=== PATIENT | male | born 1940 | race Caucasian/White ===

== ENCOUNTER 2017-10-24 12:01 | Emergency (ER) | payer OTHER, MEDICARE ==
[~2017-10-24] VITALS: Ht 182.9 cm; Wt 84.8 kg
[~2017-10-24 12:01] MED LIST: AMITIZA24 MICROGR PO; AMLODIPINE BES2.5 MG PO; ASPIR-LOW81 MG PO; ATIVAN0.5 MG PO; CARBIDOPA-LEVO1 EAC8 PO; CARBIDOPA/LEVO1 EACH PO; COMBIVENT RESPIM4 GM IH; CONSTULOSE10 GM/15 M PO; COQ-10100 MG PO; ENULOSE10 GM/15 M PO; FINASTERIDE5 MG PO; FUROSEMIDE20 MG PO; KEFLEX500 MG PO; LISINOPRIL-HCT1 EAC3 PO; LO-DOSE ASPIRIN81 M2 PO; MESTINON60 MG PO; METOPROLOL SUCC25 MG PO; NEO-SYNEPHRINE-15 ML BOTH NARES; OMEPRAZOLE40 M1 PO; POTASSIUM CHLO10 ME3 PO; PRAVASTATIN SOD40 MG PO; PYRIDOSTIGMINE60 MG PO; ROPINIROLE HCL3 MG PO; ROPINIROLE HCL4 MG PO; SERTRALINE HCL100 MG PO; SERTRALINE HCL50 MG PO; SINEMET 25-1001 EACH PO; SINEMET CR 50-1 EACH PO; SYMBICORT60 INHALAT IH; TAMSULOSIN HCL0.4 MG PO; TERAZOSIN HCL5 MG PO; VITAMIN D-32000 UNI2 PO; VITAMIN D31000 UNI2 PO; ZETIA10 MG PO
[2017-10-24 13:04] LABS: HEMATOCRIT 34.6 % (38.0-50.0); HEMOGLOBIN 11.4 G/DL (12.5-16.6); MCH 30.8 PG (29.0-34.0); MCHC 32.9 G/DL (30.0-36.0); MCV 93.5 FL (86-99); PLATELET COUNT 187 K/uL (156-360); RBC DIS.WIDTH-SD 44.8 % (39-53); WHITE BLOOD COUNT 4.1 K/uL (4.1-10.2)
[2017-10-24 13:12] LABS: CHLORIDE 103 mEq/L (99-109); POTASSIUM 4.1 mEq/L (3.7-5.4); SODIUM 140 mEq/L (136-147)
[2017-10-24 13:13] LABS: GLUCOSE 103 mg/dL (70-99)
[2017-10-24 13:17] LABS: CREATININE 0.9 mg/dL (0.6-1.3); GFR ESTIMATE (CALCULATED) > 59 mL/min/ (58.99-99999)
[2017-10-24 13:18] LABS: UREA NITROGEN (BUN) 11 mg/dL (9-23)
[2017-10-24 13:25] LABS: TROP-I INTERPRETATION NEGATIVE; TROPONIN-I < 0.01 ng/mL (0.0-0.30)
[2017-10-24 13:34] LABS: APPEARANCE CLEAR ((CLEAR)); BILIRUBIN NEGATIVE; BLOOD NEGATIVE; COLOR YELLOW ((YELLOW)); GLUCOSE (STRIP) NEGATIVE; KETONES NEGATIVE; LEUKOCYTES NEGATIVE; NITRITE NEGATIVE; PROTEIN (STRIP) NEGATIVE; SPECIFIC GRAVITY 1.011 (1.000-1.030); UCUL ADDED? NO; UROBILINOGEN 0.2 MG/DL (0.2-1.0)
[2017-10-24] MEDS ORDERED: AMLODIPINE BES2.5 MG PO (14:40)
[2017-10-24] MEDS ORDERED: LISINOPRIL-HCT1 EAC3 PO (14:40)
[2017-10-24] MEDS ORDERED: REQUIP3 MG PO (14:48)
[2017-10-24 15:52] VITALS: BP 188/88
== END 2017-10-24 15:52 | disposition home or self-care (01) ==
LOC: EME 12:01
PROVIDERS: Emergency Medicine
DX: R06.00 Dyspnea, unspecified (principal); F22 Delusional disorders; F03.90 Unspecified dementia, unspecified severity, without behavioral disturbance, psychotic disturbance, mood disturbance, and anxiety; G20 Parkinson's disease; N40.0 Benign prostatic hyperplasia without lower urinary tract symptoms; F32.9 Major depressive disorder, single episode, unspecified; F41.9 Anxiety disorder, unspecified; Z79.82 Long term (current) use of aspirin; Z87.891 Personal history of nicotine dependence; Z90.49 Acquired absence of other specified parts of digestive tract
CPT/HCPCS: 71045; 80048; 81003; 84484; 85027; 93005; 99281; 99285

== ENCOUNTER 2018-05-07 12:45 | Inpatient (IN) | payer OTHER, MEDICARE ==
[~2018-05-07] VITALS: Ht 185.4 cm; Wt 81.1 kg
[~2018-05-07 12:45] MED LIST changes: +REQUIP3 MG PO
[2018-05-07 13:08] LABS: BASOPHIL (%) 0.3 % (0-1); EOSINOPHIL (%) 1.4 % (0-5); EOSINOPHIL COUNT 0.1 K/uL (0-0.3); HEMATOCRIT 33.9 % (38.0-50.0); HEMOGLOBIN 11.3 G/DL (12.5-16.6); IMMATURE GRANULOCYTE (%) 0.3 % (0.0-0.7); LYMPHOCYTE (%) 20.3 % (15-42); LYMPHOCYTE COUNT 1.4 K/uL (1.0-2.8); MCH 30.3 PG (29.0-34.0); MCHC 33.3 G/DL (30.0-36.0); MCV 90.9 FL (86-99); MONOCYTE (%) 6.5 % (3-12); MONOCYTE COUNT 0.5 K/uL (0-0.8); NEUTROPHIL (%) 71.2 % (45-76); NEUTROPHIL COUNT 4.9 K/uL (1.8-6.4); PLATELET COUNT 169 K/uL (156-360); RBC DIS.WIDTH-CV 12.9 % (11.8-14.6); RBC DIS.WIDTH-SD 42.7 % (39-53); RED BLOOD COUNT 3.73 M/uL (4.00-5.50); WHITE BLOOD COUNT 6.9 K/uL (4.1-10.2)
[2018-05-07 13:22] LABS: CHLORIDE 101 mEq/L (99-109); PTT 30.7 SEC (25-37); SODIUM 136 mEq/L (136-147)
[2018-05-07 13:23] LABS: GLUCOSE 100 mg/dL (70-99)
[2018-05-07 13:27] LABS: CREATININE 1.4 mg/dL (0.6-1.3); GFR ESTIMATE (CALCULATED) 52 mL/min/ (58.99-99999); SERUM ETHYL ALCOHOL < 10 mg/dL
[2018-05-07 13:28] LABS: UREA NITROGEN (BUN) 27 mg/dL (9-23)
[2018-05-07 13:30] LABS: LIPASE 18 U/L (1.0-51.0)
[2018-05-07 13:34] LABS: TROP-I INTERPRETATION NEGATIVE; TROPONIN-I < 0.01 ng/mL (0.0-0.30)
[2018-05-07 14:32] LABS: APPEARANCE CLEAR ((CLEAR)); BILIRUBIN NEGATIVE; BLOOD NEGATIVE; COLOR YELLOW ((YELLOW)); GLUCOSE (STRIP) NEGATIVE; KETONES 5; LEUKOCYTES NEGATIVE; NITRITE NEGATIVE; PROTEIN (STRIP) NEGATIVE; SPECIFIC GRAVITY 1.028 (1.000-1.030); UCUL ADDED? NO; UROBILINOGEN 0.2 MG/DL (0.2-1.0)
[2018-05-07 14:44] LABS: AMPHETAMINE NEGATIVE (500 ng/mL); BARBITURATES NEGATIVE (200 ng/mL); BENZODIAZEPINES NEGATIVE (150 ng/mL); BUPRENORPHINE NEGATIVE (10 ng/mL); COCAINE NEGATIVE (150 ng/mL); METHADONE NEGATIVE (200 ng/mL); METHAMPHETAMINE NEGATIVE (500 ng/mL); OPIATES (MORPHINE) NEGATIVE (100 ng/mL); OXYCODONE NEGATIVE (100 ng/mL); PHENCYCLIDINE NEGATIVE (25 ng/mL); PROPOXYPHENE NEGATIVE (300 ng/mL); THC CANNABINOIDS NEGATIVE (50 ng/mL); TRICYCLIC ANTIDEPRESSANTS NEGATIVE (300 ng/mL)
[2018-05-07] MEDS ORDERED: SINEMET 25-1001 EACH PO (15:11)
[2018-05-07] MEDS ORDERED: ASPIRIN325 MG PO (15:12)
[2018-05-07] MEDS ORDERED: VITAMIN D31000 UNI2 PO (15:12)
[2018-05-07] MEDS ORDERED: SINEMET CR 50-1 EACH PO (15:12)
[2018-05-07] MEDS ORDERED: LISINOPRIL-HCT1 EAC3 PO (15:13)
[2018-05-07] MEDS ORDERED: LASIX20 MG PO (15:13)
[2018-05-07] MEDS ORDERED: K-DUR10 MEQ PO (15:14)
[2018-05-07] MEDS ORDERED: TOPROL XL25 MG PO (15:14)
[2018-05-07] MEDS ORDERED: MESTINON60 MG PO (15:15)
[2018-05-07] MEDS ORDERED: ZOLOFT100 MG PO (15:16)
[2018-05-07] MEDS ORDERED: REQUIP2 MG PO (15:16)
[2018-05-07] MEDS ORDERED: NORVASC2.5 MG PO (15:17)
[2018-05-07] MEDS ORDERED: PROSCAR5 MG PO (15:19)
[2018-05-07] MEDS ORDERED: FLOMAX0.4 MG PO (15:19)
[2018-05-07] MEDS ORDERED: SYMBICORT60 INHALAT IH (15:19)
[2018-05-07 15:20] LABS: HEMATOCRIT 32.6 % (38.0-50.0); HEMOGLOBIN 10.9 G/DL (12.5-16.6); MCH 30.4 PG (29.0-34.0); MCHC 33.4 G/DL (30.0-36.0); MCV 91.1 FL (86-99); PLATELET COUNT 162 K/uL (156-360); RBC DIS.WIDTH-CV 12.8 % (11.8-14.6); RBC DIS.WIDTH-SD 42.7 % (39-53); RED BLOOD COUNT 3.58 M/uL (4.00-5.50); WHITE BLOOD COUNT 6.6 K/uL (4.1-10.2)
[2018-05-07] MEDS ORDERED: SEROQUEL50 MG PO (15:20)
[2018-05-07 15:56] LABS: HDL CHOLESTEROL 31 MG/DL (Desirable>=40); LDL CHOLESTEROL 130 mg/dL (Desirable<100); NON-HDL CHOLESTEROL 162 mg/dL (Desirable<160); TOTAL CHOLESTEROL 193 mg/dL (Desirable<200); TRIGLYCERIDES 158 MG/DL (Normal: <150)
[2018-05-07 16:32] VITALS: BP 141/67
[2018-05-07 20:00] VITALS: BP 141/72
[2018-05-08] VITALS (7 sets, daily range): BP systolic 97–120; BP diastolic 62–76
[2018-05-08 06:35] LABS: HEMATOCRIT 34.2 % (38.0-50.0); HEMOGLOBIN 11.4 G/DL (12.5-16.6); MCH 30.2 PG (29.0-34.0); MCHC 33.3 G/DL (30.0-36.0); MCV 90.5 FL (86-99); PLATELET COUNT 160 K/uL (156-360); RBC DIS.WIDTH-CV 12.8 % (11.8-14.6); RBC DIS.WIDTH-SD 42.4 % (39-53); RED BLOOD COUNT 3.78 M/uL (4.00-5.50); WHITE BLOOD COUNT 4.2 K/uL (4.1-10.2)
[2018-05-08 06:58] LABS: CHLORIDE 102 MEQ/L (99-109); CREATININE 1.3 MG/DL (0.6-1.3); GFR ESTIMATE (CALCULATED) 57 mL/min/ (58.99-99999); GLUCOSE 107 mg/dL (70-99); POTASSIUM 4.2 MEQ/L (3.7-5.4); SODIUM 137 MEQ/L (136-147); UREA NITROGEN (BUN) 22 mg/dL (9-23)
[2018-05-09 03:43] VITALS: BP 122/78
[2018-05-09 07:29] VITALS: BP 152/86
[2018-05-09 10:56] LABS: HEMOGLOBIN A1c (GLYCOHEMOGLOB) 5.8 % (Below 5.7)
[2018-05-09 15:42] VITALS: BP 146/85
[2018-05-09 23:55] VITALS: BP 108/67
[2018-05-10 08:00] VITALS: BP 133/71
[2018-05-10] MEDS ORDERED: ATORVASTATIN CA40 MG PO (10:19)
[2018-05-10] MEDS ORDERED: LISINOPRIL5 MG PO (10:25)
[2018-05-10 14:45] VITALS: BP 148/80
== END 2018-05-10 15:00 | DRG 57 ==
LOC: EME 12:45 → CANRESERV 14:17 → 5SOUTH 14:26 → EDOF 14:26 → ENRESERV 14:36 → 5SOUTH 16:12
PROVIDERS: Emergency Medicine; Physician Assistant Medical
DX: G20 Parkinson's disease (principal); N17.9 Acute kidney failure, unspecified; I65.22 Occlusion and stenosis of left carotid artery; J44.9 Chronic obstructive pulmonary disease, unspecified; N40.0 Benign prostatic hyperplasia without lower urinary tract symptoms; R47.1 Dysarthria and anarthria; R47.01 Aphasia; I12.9 Hypertensive chronic kidney disease with stage 1 through stage 4 chronic kidney disease, or unspecified chronic kidney disease; N18.3 Chronic kidney disease, stage 3 (moderate); F03.90 Unspecified dementia, unspecified severity, without behavioral disturbance, psychotic disturbance, mood disturbance, and anxiety; Z86.73 Personal history of transient ischemic attack (TIA), and cerebral infarction without residual deficits; G24.9 Dystonia, unspecified; Z79.82 Long term (current) use of aspirin; Z87.891 Personal history of nicotine dependence
CPT/HCPCS: 70450; 70496; 70498; 70551; 71045; 80047; 80048; 80061; 81003; 82150; 83036; 83690; 84484; 85025; 85027; 85610; 85730; 86850; 86900; 86901; 92610 GN; 93005; 93880; 94799; 99281; 99285; G0480; J1650